=== PATIENT | female | born 1975 | race Native Hawaiian/Other Pacific Islander ===

== ENCOUNTER 2020-01-23 09:57 | Outpatient (CLI) | payer BC, OTHER | END 2020-01-23 22:33 | disposition home or self-care (01) | LOC: LABW 09:57 | DX: Z20.828 Contact with and (suspected) exposure to other viral communicable diseases (principal); R05 Cough | CPT/HCPCS: 87635; G2023; U0002 ==

== ENCOUNTER 2022-05-05 10:13 | Outpatient (CLI) | payer BC ==
[~2022-05-05] VITALS: Ht 177.8 cm; Wt 77.1 kg
[2022-05-05 10:32] VITALS: BP 117/78; TEMP 98.7
[2022-05-05 11:20] VITALS: BP 110/74; TEMP 98.6
[2022-05-05 11:35] VITALS: BP 114/71; TEMP 98.4
[2022-05-05 12:05] VITALS: BP 113/79; TEMP 98.2
== END 2022-05-05 19:04 | disposition home or self-care (01) ==
LOC: INF 10:13
PROVIDERS: ATTEND Family Medicine
DX: Z23 Encounter for immunization (principal); U07.1 COVID-19
CPT/HCPCS: 96374; Q0222